=== PATIENT | male | born 1985 | race Caucasian/White ===

== ENCOUNTER 2017-02-08 22:49 | Emergency (ER) | payer SELFPAY ==
[~2017-02-08] VITALS: Ht 167.6 cm; Wt 80.0 kg
[2017-02-08 22:53] VITALS: Ht 167.6 cm; Wt 80.0 kg
[2017-02-09] MEDS ORDERED: CEPH-443 PO (01:50)
[2017-02-09] MEDS ORDERED: IBUP-1542 PO (01:50)
[2017-02-09] MEDS ORDERED: SULF1TAB31 PO (01:50)
[2017-02-09] MEDS ORDERED: CLOT30CR24 TOP (01:50)
--- NOTE | 2017-02-09 02:20 | ERD ---
ER Documentation Chief Complaint Date/Time DATE: 02/09/17 TIME: 02:16 Chief Complaint right foot swelling HPI 32-year-old male presents to emergency department for complaint of right foot swelling and redness for the last 2 days. Patient's complains of pain throbbing pain 6/10 scale, now better or worse with anything. Patient denies any trauma and affected area. Patient denies any numbness or tingling. Patient denies any fever or chills. Patient has a orthopedic cast the left leg, wants this to be removed. ROS All systems reviewed and are negative except as per history of present illness. Medications Home Meds Active Scripts Clotrimazole* (Clotrimazole* AF) 1% - 30 Gm Cream.gm., 1 APPLIC TOP BID for 7 Days, TUB Prov:CLAUDIA FALCON NP 02/09/17 Ibuprofen* (Motrin*) 600 Mg Tab, 600 MG PO Q6H Y for PAIN AND OR ELEVATED TEMP, #30 TAB Prov:CLAUDIA FALCON NP 02/09/17 Cephalexin* (Keflex*) 500 Mg Capsule, 500 MG PO QID for 10 Days, CAP Prov:CLAUDIA FALCON NP 02/09/17 Sulfamethoxazole/Trimethoprim* (Bactrim Ds* Tablet) 1 Each Tablet, 1 TAB PO BID , #20 TAB Prov:CLAUDIA FALCON NP 02/09/17 Allergies Allergies: Coded Allergies: No Known Allergy (Unverified , 02/08/17) PMhx/Soc Medical and Surgical Hx: pt denies Medical Hx, pt denies Surgical Hx History of Surgery: No (DENIES MEDICAL AND SURGICAL HX.) Hx Alcohol Use: No Hx Substance Use: No Hx Tobacco Use: Yes Smoking Status: Current some day smoker FmHx Family History: No coronary disease, No diabetes, No other Physical Exam Vitals Vital Signs Date Time Temp Pulse Resp B/P Pulse Ox O2 Delivery O2 Flow Rate FiO2 02/08/17 22:53 98.5 88 20 168/81 98 Physical Exam GENERAL: The patient is well developed and appropriate for usual state of health, in no apparent distress. CHEST: Clear to auscultation bilaterally. There are no rales, wheezes or rhonchi. HEART: Regular rate and rhythm. No murmurs, clicks, rubs or gallops. No S3 or S4. ABDOMEN: Soft, nontender and nondistended. Good bowel sounds. No rebound or guarding. No gross peritonitis. No gross organomegaly or masses. No Otto sign or McBurney point tenderness. BACK: No midline or flank tenderness. EXTREMITIES: Equal pulses bilaterally. There is no peripheral clubbing, cyanosis or edema. No focal swelling or erythema. Full range of motion except for the joints of the left lower leg in the cast.. Grossly neurovascularly intact. Noted cast in place in the left lower leg. NEURO: Alert and oriented. Cranial nerves 2-12 intact. Motor strength in all 4 extremities with 5/5 strength. Sensation grossly intact. Normal speech and gait. SKIN: Noted redness and swelling of the right foot, noted macerated skin in between the toes of the right foot. There is no apparent ecchymosis or petechia. The skin is warm and dry. HEMATOLOGIC AND LYMPHATIC: There is no evidence of excessive bruising or lymphedema. No gross cervical, axillary, or inguinal lymphadenopathy. Procedures/MDM Medical decision making: Patient's symptoms likely consistent with a right foot cellulitis most likely from the tinea pedis. No symptoms of neurovascular compromise. No suspicion for DVT. No suspicion for any fracture. Patient did not have any trauma on affected area, able to move the joints without any difficulty. Patient has good circulation of the left leg where the cast is in place, is advised to see orthopedic doctor for possible removal and reevaluation and management of the his left foot fracture. Patient was advised to return to emergency department for any worsening symptoms. Departure Diagnosis: Primary Impression: Tinea pedis Laterality: right Qualified Code: B35.3 - Tinea pedis of right foot Additional Impression: Cellulitis Site of cellulitis: extremity Site of cellulitis of extremity: lower extremity Laterality: right Qualified Code: L03.115 - Cellulitis of right lower extremity Condition: Stable Patient Instructions: Cellulitis, Athlete'S Foot Referrals: COMMUNITY CLINICS YOU HAVE RECEIVED A MEDICAL SCREENING EXAM AND THE RESULTS INDICATE THAT YOU DO NOT HAVE A CONDITION THAT REQUIRES URGENT TREATMENT IN THE EMERGENCY DEPARTMENT. FURTHER EVALUATION AND TREATMENT OF YOUR CONDITION CAN WAIT UNTIL YOU ARE SEEN IN YOUR DOCTORS OFFICE WITHIN THE NEXT 1-2 DAYS. IT IS YOUR RESPONSIBILITY TO MAKE AN APPOINTMENT FOR FOLOW-UP CARE. IF YOU HAVE A PRIMARY DOCTOR --you should call your primary doctor and schedule an appointment IF YOU DO NOT HAVE A PRIMARY DOCTOR YOU CAN CALL OUR PHYSICIAN REFERRAL HOTLINE AT IF YOU CAN NOT AFFORD TO SEE A PHYSICIAN YOU CAN CHOSE FROM THE FOLLOWING [facility] [address] [facility] [address] [facility] [address] [facility] [address] [facility] [address] [facility]. [facility] [address] [facility]. [facility] YOU HAVE RECEIVED A MEDICAL SCREENING EXAM AND THE RESULTS INDICATE THAT YOU DO NOT HAVE A CONDITION THAT REQUIRES URGENT TREATMENT IN THE EMERGENCY DEPARTMENT. FURTHER EVALUATION AND TREATMENT OF YOUR CONDITION CAN WAIT UNTIL YOU ARE SEEN IN YOUR DOCTORS OFFICE WITHIN THE NEXT 1-2 DAYS. IT IS YOUR RESPONSIBILITY TO MAKE AN APPOINTMENT FOR FOLOW-UP CARE. IF YOU HAVE A PRIMARY DOCTOR --you should call your primary doctor and schedule and appointment IF YOU DO NOT HAVE A PRIMARY DOCTOR YOU CAN CALL OUR PHYSICIAN REFERRAL HOTLINE AT . IF YOU CAN NOT AFFORD TO SEE A PHYSICIAN YOU CAN CHOSE FROM THE FOLLOWING [facility]: [facility] [address] [place] [address] [facility] [address] [place] [address] [facility] [address] [place] [address] [facility] URGENT CARE/SPECIALTIES Additional Instructions: see orhtopedic doctor for removal of left foot cast CLAUDIA FALCON NP Feb 09, 2017 02:20
== END 2017-02-09 02:00 | disposition home or self-care (01) ==
LOC: FTE 22:49
DX: B35.3 Tinea pedis (principal); L03.115 Cellulitis of right lower limb; F17.210 Nicotine dependence, cigarettes, uncomplicated
CPT/HCPCS: 99284